=== PATIENT | male | born 1935 | race Caucasian/White ===

== ENCOUNTER → 2017-04-27 | Outpatient (CLI) | payer MEDICARE ==
--- NOTE | 2017-04-27 14:07 | RADIOLOGY REPORT (SQ) ---
EXAM DESCRIPTION: CAROTID DOPPLER COMPLETED DATE/TIME: 04/27/2017 12:01 pm REASON FOR STUDY: TRANSIENT VISUAL LOSS LEFT EYE H53.122 TRANSIENT VISUAL LOSS, LEFT EYE COMPARISON: None. TECHNIQUE: Grayscale ultrasound, Doppler velocity and spectra, and color Doppler images acquired of the extra-cranial carotid and vertebral arteries. Images stored on PACS. LIMITATIONS: None. FINDINGS: RIGHT CAROTID CCA Velocities: Within normal limits. ICA Velocities Peak systolic 1.3 m/s. End diastolic 0.22 m/s. Proximal ICA/CCA peak systolic ratio 1.7. Mild mixed calcific and noncalcific plaque at the right carotid bifurcation without flow significant stenosis by velocity criteria. LEFT CAROTID CCA Velocities: Within normal limits. ICA Velocities Peak systolic 6.8 m/s. End diastolic 2.3 m/s. Proximal ICA/CCA peak systolic ratio 9.5. There is calcific and noncalcific plaque at the left carotid bifurcation. Tight stenosis is present at the origin of the left internal carotid artery, with elevated peak systolic and end-diastolic velo cities and. Turbulent flow. Velocities suggest greater than 70% stenosis, likely closer to the 80 t o 90% narrowing. VERTEBRAL ARTERIES: Antegrade flow. Normal waveforms. SUBCLAVIAN ARTERIES: Not evaluated OTHER: No other significant finding. IMPRESSION: No flow significant stenosis proximal right ICA. High-grade narrowing left proximal ICA from calcific and noncalcific plaque. Velocities suggest clos e to 90% diameter stenosis. Antegrade pulsatile vertebral artery flow bilaterally. COMMENT: Quality ID #[id number]: Velocity criteria are extrapolated from the diameter data as defined by [employer] in Ultrasound Consensus Conference. Radiology 2003: 229; 340-346. TECHNICAL DOCUMENTATION: JOB ID: [id number] [employer]- All Rights Reserved
== END ==
LOC: SP 10:36
PROVIDERS: ATTEND Ophthalmology
DX: H53.122 Transient visual loss, left eye (principal); I65.22 Occlusion and stenosis of left carotid artery
CPT/HCPCS: 93880

== ENCOUNTER → 2019-05-13 | Outpatient (CLI) | payer MEDICARE ==
--- NOTE | 2019-05-14 08:49 | RADIOLOGY REPORT (SQ) ---
EXAM DESCRIPTION: MRI HEAD COMBO COMPLETED DATE/TIME: 05/13/2019 10:16 pm REASON FOR STUDY: H53.2 DIPLOPIA H53.2 DIPLOPIA COMPARISON: None. TECHNIQUE: Multiplanar imaging includes non-contrasted T1, T2, FLAIR, diffusion with ADC map and pos t gadolinium contrast sequences. Additional thin slice images with and without gadolinium contrast a cquired of the orbits. Images stored on PACS. CONTRAST TYPE AND DOSE: 15 mL Dotarem. RENAL FUNCTION: Not indicated. ACR Type II contrast agent associated with few, if any, unconfounded cases of NSF LIMITATIONS: None. FINDINGS: ANATOMY: No anomalies. Normal vascular flow voids. Pituitary fossa normal. CSF SPACES: Mild age related involution and prominence. No extra-axial mass, hemorrhage or abnormal enhancement. CEREBRUM: Sulci and gyri normal in size and contour. Mild areas of spotty white matter signal on FL AIR imaging, deep periventricular small vessel ischemic change. No hemorrhage. No edema, masses or m ass effect. No enhancing lesions. POSTERIOR FOSSA: No signal alteration. No hemorrhage. No edema, masses or mass effect. Internal helio tory canals, cerebello-pontine angles, mastoids normal. No enhancing lesions. DIFFUSION IMAGING: Negative for acute or sub-acute infarction. ORBITS: No masses. Globes normal. Extraocular muscles and optic nerves normal. Orbital fat clear. No inflammatory changes or enhancement. PARANASAL SINUSES: No fluid levels. Small mucous retention cyst left maxillary sinus. OTHER: No other significant finding. IMPRESSION: 1. Mild chronic atrophy and small vessel disease. 2. Orbits look normal. 3. No acute or suspicious intracranial abnormality. TECHNICAL DOCUMENTATION: JOB ID: [id number] [employer]- All Rights Reserved Reading location - IP/workstation name: [email or web address]
== END ==
LOC: RAD 17:53
PROVIDERS: ATTEND Ophthalmology
DX: H53.2 Diplopia (principal)
CPT/HCPCS: 82565; 70553; A9576